=== PATIENT | female | born 2000 | race Hispanic/Latino ===

== ENCOUNTER 2020-04-13 14:42 | Emergency (ER) | payer OTHER ==
--- OUTSIDE RECORDS SUMMARY | 2020-04-13 14:45 | XMS REPORT | Continuity of Care Document ---
:2000 Author Organization [facility] t Address [address] [place] [address] Care Team Providers Name Role Phone Marcell Reyes MD Attending Clinician Problems This patient has no known problems. Allergies, Adverse Reactions, Alerts This patient has no known allergies or adverse reactions. Medications This patient has no known medications. Procedures This patient has no known procedures. Encounters Start End Encounter Admission Attending Care Care Encounter Source Date/Time Date/Time Type Type Clinicians Facility Department ID 2020-04-02 2020-04-02 Emergency Eric NHSAHARA [id number] 15:00:00 16:56:00 Sacha Corado [id number] [place] [id number] [place] [id number] Results This patient has no known results.
--- NOTE | 2020-04-13 18:00 | ER ---
Nurse's Notes [facility] Name: Dorothy Trujillo Age: 20 yrs Sex: Female : 2000 Arrival Date: 04/13/2020 Time: 14:43 Bed 23 [facility] MD: Diagnosis: Vomiting;Alcohol abuse Presentation: 04/13 14:47 Chief complaint: Patient states: vomiting that started this morning after "drinking too sv much last night". Coronavirus screen: Client denies travel out of the [place] in the last 14 days. At this time, the client does not indicate any symptoms associated with coronavirus-19. Ebola Screen: No symptoms or risks identified at this time. Risk Assessment: Do you want to hurt yourself or someone else? Patient reports no desire to harm self or others. Onset of symptoms was April 13, 2020. 14:47 Method Of Arrival: Ambulatory sv 14:47 Acuity: AMELIA 4 sv 14:49 Initial Sepsis Screen: Does the patient meet any 2 criteria? No. Patient's initial sv sepsis screen is negative. Does the patient have a suspected source of infection? No. Patient's initial sepsis screen is negative. Triage Assessment: 14:51 General: Appears in no apparent distress. comfortable, Behavior is calm, cooperative, sv appropriate for age. Neuro: Level of Consciousness is awake, alert, obeys commands, Oriented to person, place, time, situation, Gait is steady. Respiratory: Respiratory effort is even, unlabored. GI: Reports vomiting. Historical: - Allergies: 14:48 No Known Allergies; sv - Home Meds: 17:28 Latuda oral [Active]; Trazodone Oral [Active]; Buspirone Oral [Active]; Hydroxyzine vg1 Oral [Active]; cetirizine oral oral [Active]; - PMHx: 14:48 None; sv - PSHx: 14:48 Tonsillectomy; sv - Immunization history:: Adult Immunizations up to date. - Social history:: Smoking status: Reported history of juuling and/or vaping. Screenin:26 Abuse screen: Denies threats or abuse. Nutritional screening: No deficits noted. vg1 Tuberculosis screening: No symptoms or risk factors identified. Fall Risk None identified. Assessment: 17:25 General: Appears in no apparent distress. comfortable, Behavior is calm, cooperative. vg1 Pain: Complains of pain in epigastric area Pain currently is 3 out of 10 on a pain scale. Pain began this morning. Neuro: Level of Consciousness is awake, alert, obeys commands, Oriented to person, place, time, situation. Cardiovascular: Patient's skin is warm and dry. Respiratory: Airway is patent Respiratory effort is even, unlabored. GI: Abdomen is flat, Bowel sounds present X 4 quads. Abd is soft and non tender X 4 quads. Reports nausea, vomiting. : No signs and/or symptoms were reported regarding the genitourinary system. EENT: No signs and/or symptoms were reported regarding the EENT system. Derm: Skin is intact, is healthy with good turgor. Musculoskeletal: Circulation, motion, and sensation intact. Vital Signs: 14:49 BP 125 / 96; Pulse 70; Resp 16; Temp 98(TE); Pulse Ox 99% on R/A; Weight 52.16 kg; sv Height 5 ft. 2 in. (157.48 cm); 17:26 BP 108 / 82; Pulse 70; Resp 16; Pulse Ox 99% on R/A; vg1 14:49 Body Mass Index 21.03 (52.16 kg, 157.48 cm) sv ED Course: 14:43 Patient arrived in ED. ds1 14:47 Arm band placed on. sv 14:48 Triage completed. sv 17:12 Elizabeth Jones, CANDACE is Primary Nurse. vg1 17:15 Pepe Stevens NP is PHCP. pm1 17:15 Eliseo Chappell MD is Attending Physician. pm1 17:26 Patient has correct armband on for positive identification. Bed in low position. Call vg1 light in reach. Side rails up X 1. 18:03 No provider procedures requiring assistance completed. Patient did not have IV access vg1 during this emergency room visit. Administered Medications: No medications were administered Outcome: 18:03 AMA AMA form signed vg1 18:03 Condition: good 18:03 Patient left the ED. vg1 Signatures: Sarah Chavez RN RN Corrie Squires ds1 Pepe Stevens NP SPORTS RECRUITER pm1 Elizabeth Jones RN RN vg1 Corrections: (The following items were deleted from the chart) 14:50 14:49 Pulse 70bpm; Resp 16bpm; Pulse Ox 99% RA; Temp 98F Temporal; 52.16 kg; Height 5 sv ft. 2 in.; BMI: 21.0; sv
--- NOTE | 2020-04-13 18:00 | EDPHYS ---
Physician Documentation [facility] Name: Dorothy Trujillo Age: 20 yrs Sex: Female : 2000 Arrival Date: 04/13/2020 Time: 14:43 Bed 23 Private MD: ED Physician Eliseo Chappell HPI: 04/13 17:41 This 20 yrs old Female presents to ER via Ambulatory with complaints of pm1 Vomiting. 17:41 The patient presents to the emergency department with vomiting. pm1 17:41 Onset: The symptoms/episode began/occurred this morning. Possible causes: ETOH. The pm1 symptoms are aggravated by nothing. The symptoms are alleviated by nothing. Associated signs and symptoms: Pertinent positives: abdominal pain, Pertinent negatives: constipation, diarrhea, fever. Severity of symptoms: in the emergency department the symptoms are worse. The patient has not experienced similar symptoms in the past. The patient has not recently seen a physician. Historical: - Allergies: 14:48 No Known Allergies; sv - Home Meds: 17:28 Latuda oral [Active]; Trazodone Oral [Active]; Buspirone Oral [Active]; Hydroxyzine vg1 Oral [Active]; cetirizine oral oral [Active]; - PMHx: 14:48 None; sv - PSHx: 14:48 Tonsillectomy; sv - Immunization history:: Adult Immunizations up to date. - Social history:: Smoking status: Reported history of juuling and/or vaping. ROS: 17:41 Constitutional: Negative for fever, chills, and weight loss, Cardiovascular: Negative pm1 for chest pain, palpitations, and edema, Respiratory: Negative for shortness of breath, cough, wheezing, and pleuritic chest pain. 17:41 Back: Negative for injury and pain, : Negative for injury, bleeding, discharge, and swelling, MS/Extremity: Negative for injury and deformity, Skin: Negative for injury, rash, and discoloration, Neuro: Negative for headache, weakness, numbness, tingling, and seizure. 17:41 Abdomen/GI: Positive for abdominal pain, nausea and vomiting, Negative for diarrhea, constipation. Exam: 17:41 Constitutional: This is a well developed, well nourished patient who is awake, alert, pm1 and in no acute distress. Head/Face: Normocephalic, atraumatic. 17:41 Back: No spinal tenderness. No costovertebral tenderness. Full range of motion. Skin: Warm, dry with normal turgor. Normal color with no rashes, no lesions, and no evidence of cellulitis. MS/ Extremity: Pulses equal, no cyanosis. Neurovascular intact. Full, normal range of motion. 17:41 Cardiovascular: Exam negative for acute changes, Rate: normal, Rhythm: regular, Pulses: no pulse deficits are appreciated. 17:41 Respiratory: Exam negative for acute changes, respiratory distress, shortness of breath. 17:41 Abdomen/GI: Inspection: abdomen appears normal, Palpation: abdomen is soft and non-tender, in all quadrants. 17:41 Neuro: Exam negative for acute changes, Orientation: is normal, Mentation: is normal, Motor: is normal, moves all fours. Vital Signs: 14:49 BP 125 / 96; Pulse 70; Resp 16; Temp 98(TE); Pulse Ox 99% on R/A; Weight 52.16 kg; sv Height 5 ft. 2 in. (157.48 cm); 17:26 BP 108 / 82; Pulse 70; Resp 16; Pulse Ox 99% on R/A; vg1 14:49 Body Mass Index 21.03 (52.16 kg, 157.48 cm) sv MDM: 17:20 Patient medically screened. pm1 17:45 Data reviewed: vital signs. Data interpreted: Pulse oximetry: on room air is 99 %. pm1 Interpretation: normal. 17:57 Refusal of service: The patient/guardian displays adequate decision making capability pm1 and despite a detailed discussion of alternatives, benefits, risks, and consequences refuses: all lab tests. 04/13 17:30 Order name: Basic Metabolic Panel pm1 04/13 17:30 Order name: Hepatic Function pm1 04/13 17:30 Order name: Lipase pm1 04/13 17:30 Order name: IV Saline Lock pm04/13 17:30 Order name: Labs collected and sent pm1 04/13 17:31 Order name: Urine Dipstick-Ancillary (obtain specimen) pm1 04/13 17:31 Order name: Urine Test (obtain specimen) pm1 Administered Medications: No medications were administered Disposition: 04/14 06:21 Co-signature as Attending Physician, Eliseo Chappell MD I agree with the assessment and fransico plan of care. Disposition: 04/13/20 17:59 Patient has left against medical advice. Impression: Vomiting, Alcohol abuse. - Patients states they are going to Home. - Condition is Undetermined. - Discharge Instructions: Nausea and Vomiting, Adult, Alcohol Abuse and Nutrition. Follow up: Emergency Department; When: As needed; Reason: Worsening of condition. Follow up: Private Physician; When: Upon discharge from the Emergency Department; Reason: Recheck today's complaints, Continuance of care, Re-evaluation by your physician. - Problem is new. - Symptoms are unchanged. Signatures: Dispatcher [employer] EDSarah Arreguin RN RN Eliseo Swanson MD MD cha Marinas, Patrick, SPECIAL EDUCATION SUPERINTENDENT SPECIAL EDUCATION SUPERINTENDENT pm1 Elizabeth Jones RN RN vg1 Corrections: (The following items were deleted from the chart) 04/13 18:03 17:59 04/13/2020 17:59 Patients has left against medical advice. Impression: Vomiting; vg1 Alcohol abuse. Patient states they are going to Home. Condition is Undetermined. Follow up: Emergency Department; When: As needed; Reason: Worsening of condition. Follow up: Private Physician; When: Upon discharge from the Emergency Department; Reason: Recheck today's complaints, Continuance of care, Re-evaluation by your physician. Problem is new. Symptoms are unchanged. pm1
[2020-04-13] MEDS ORDERED: MAGNES/ALUMIN/SIMET 30ML UCUP ONE (18:12)
[2020-04-13] MEDS ORDERED: LIDOCAINE VISCOUS 2% SOLN 15 ML UDC ONE (18:12)
[2020-04-13] MEDS ORDERED: ONDANSETRON 4 MG/2 ML VIAL ONE (18:12)
[2020-04-13] MEDS ORDERED: NA CHLORIDE 0.9% 0 ML ONE (18:13)
[2020-04-13 19:13] VITALS: TEMP 98; O2SAT 99
[2020-04-13 19:14] VITALS: BP 108/82
== END 2020-04-13 18:03 | disposition left against medical advice (07) ==
LOC: ER 14:42
DX: F10.10 Alcohol abuse, uncomplicated (principal); Z87.891 Personal history of nicotine dependence
CPT/HCPCS: 99281; J2405; J7030

== ENCOUNTER 2020-06-06 13:43 | Emergency (ER) | payer OTHER ==
--- OUTSIDE RECORDS SUMMARY | 2020-06-06 13:45 | XMS REPORT | Continuity of Care Document ---
:[address] [facility] t Address [address] [place] [address] Care Team Providers Name Role Phone UNKNOWN Primary Care Physician Unavailable Marcell Reyes MD Attending Clinician IVA STEWART M.D. Attending Clinician Unavailable IVA STEWART M.D. Admitting Clinician Unavailable Problems This patient has no known problems. Allergies, Adverse Reactions, Alerts This patient has no known allergies or adverse reactions. Medications This patient has no known medications. Procedures This patient has no known procedures. Encounters Start End Encounter Admission Attending Care Care Encounter Source Date/Time Date/Time Type Type Clinicians Facility Department ID 2020-04-02 2020-04-02 Emergency JAROD Reyes [id number] 15:00:00 16:56:00 Sacha Faith [place] [id number] [place] [id number] [place] [id number] 2016-04-22 2016-04-22 Outpatient [facility] [id number] Medical 05:29:00 05:29:00 [facility] Results This patient has no known results.
[2020-06-06 16:48] LABS: Urine Blood Trace-intact (Negative); Urine Glucose Negative (Negative); Urine Protein Negative (Negative); Urine pH 6.5 (5.0-7.0)
[2020-06-06] MEDS ORDERED: ONDANSETRON 4 MG/2 ML VIAL ONE (16:48)
[2020-06-06] MEDS ORDERED: NA CHLORIDE 0.9% 1,000 ML ONE (16:48)
[2020-06-06] MEDS ORDERED: ACETAMINOPHEN 325 MG TABLET ONE (16:48)
[2020-06-06 16:52] LABS: Absolute Lymphocytes (CBC) 2.6 K/uL (0.7-4.9); Basophils % 0.4 % (0-1.3); Hematocrit 38.2 % (36.0-45.0); Lymphocytes % 36.4 % (15.3-44.8); MPV 9.1 fL (7.6-11.3); RBC Red Blood Cell Count 4.11 M/uL (3.86-4.86)
[2020-06-06 16:55] LABS: Urine Blood TRACE (Negative); Urine Glucose NEGATIVE (Negative); Urine Protein NEGATIVE (Negative); Urine pH 6.5 (5.0-7.0)
[2020-06-06 17:17] LABS: ALT/SGPT 82 U/L (12-78); AST/SGOT 43 U/L (15-37); Albumin 3.9 g/dL (3.4-5.0); Alkaline Phosphatase 73 U/L (45-117); BUN Blood Urea Nitrogen 12 mg/dL (7-18); Bicarbonate 28 mmol/L (21-32); Bilirubin Direct 0.1 mg/dL (0-0.2); Bilirubin Total 0.5 mg/dL (0.2-1.0); Glucose Level 84 mg/dL (74-106); Lipase 65 U/L (73-393); Potassium 3.7 mmol/L (3.5-5.1); Protein, Total 7.5 g/dL (6.4-8.2); Sodium Level 138 mmol/L (136-145)
--- NOTE | 2020-06-06 17:34 | RAD REPORT ---
EXAM DESCRIPTION: RAD - Wrist Right 3 View - 06/06/2020 4:54 pm CLINICAL HISTORY: PAIN Pain COMPARISON: <Comparisons> FINDINGS: No fracture or dislocation seen. No foreign body or other soft tissue abnormality. IMPRESSION: Negative examination.
--- NOTE | 2020-06-06 17:44 | ER ---
Nurse's Notes [facility] Name: Dorothy Trujillo Age: 20 yrs Sex: Female : 2000 Arrival Date: 06/06/2020 Time: 13:46 Bed 15 Private MD: Diagnosis: Vomiting;Other and unspecified sprain of wrist Presentation: 06/06 13:58 Chief complaint: Patient states: N/V that began this morning. Also wants to have R ss wrist checked out after injuring it last night. Coronavirus screen: Client denies travel out of the [place] in the last 14 days. Ebola Screen: Patient denies exposure to infectious person. Patient denies travel to an Ebola-affected area in the 21 days before illness onset. Initial Sepsis Screen: Does the patient meet any 2 criteria? No. Patient's initial sepsis screen is negative. Does the patient have a suspected source of infection? No. Patient's initial sepsis screen is negative. Risk Assessment: Do you want to hurt yourself or someone else? Patient reports no desire to harm self or others. Onset of symptoms was June 06, 2020. 13:58 Method Of Arrival: Ambulatory ss 13:58 Acuity: AMELIA 3 ss Triage Assessment: 15:30 General: Appears in no apparent distress. uncomfortable, Behavior is calm, cooperative, bp appropriate for age. Pain: Complains of pain in head. EENT: No deficits noted. Neuro: Level of Consciousness is awake, alert, obeys commands, Oriented to Appropriate for age. Cardiovascular: No deficits noted. Respiratory: No deficits noted. GI: Reports nausea, vomiting. : No signs and/or symptoms were reported regarding the genitourinary system. Derm: No deficits noted. Musculoskeletal: No deficits noted. 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 - Social history:: Smoking status: Patient reports the use of cigarette tobacco products, smokes one-half pack cigarettes per day. Screenin:30 Abuse screen: Denies threats or abuse. Denies injuries from another. Nutritional bp screening: No deficits noted. Tuberculosis screening: No symptoms or risk factors identified. Fall Risk None identified. Assessment: 15:30 General: SEE TRIAGE NOTE. bp 16:30 GI: Abdomen is non-distended. bp 17:30 Reassessment: Patient appears in no apparent distress at this time. Patient and/or bp family updated on plan of care and expected duration. Pain level reassessed. Patient is alert, oriented x 3, equal unlabored respirations, skin warm/dry/pink. ALL CURRENT ORDERS COMPLETED Patient states symptoms have improved. 17:52 Reassessment: PT D/C HOME AMBULATORY, DX WITH NAUSEA/VOMITING. bp Vital Signs: 14:02 BP 117 / 90; Pulse 95; Resp 15; Temp 97.0(TE); Pulse Ox 98% on R/A; Weight 63.5 kg; ss Height 5 ft. 2 in. (157.48 cm); Pain 0/10; 15:30 BP 137 / 76; Pulse 88; Resp 17; Pulse Ox 97% ; bp 16:30 BP 111 / 85; Pulse 62; Resp 17; Pulse Ox 99% ; bp 17:30 BP 116 / 83; Pulse 59; Resp 17; Pulse Ox 97% ; bp 14:02 Body Mass Index 25.61 (63.50 kg, 157.48 cm) ED Course: 13:46 Patient arrived in ED. mr 13:59 Triage completed. ss 14:04 Arm band placed on right wrist. ss 15:29 Rosalino Olivarez, CANDACE is Primary Nurse. bp 15:40 Thomas Snyder PA is PHCP. jmm 15:40 Eliseo Chappell MD is Attending Physician. jmm 16:40 Inserted saline lock: 20 gauge in right antecubital area, using aseptic technique. bp Blood collected. 16:55 Wrist Right 3 View XRAY In Process Unspecified. EDMS 16:59 Patient has correct armband on for positive identification. Bed in low position. Call bp light in reach. Side rails up X2. 17:52 No provider procedures requiring assistance completed. IV discontinued, intact, bp bleeding controlled, No redness/swelling at site. Pressure dressing applied. Administered Medications: 16:15 Drug: Tylenol 650 mg Route: PO; bp 17:56 Follow up: Response: No adverse reaction bp 16:20 Drug: NS 0.9% 1000 ml Route: IV; Rate: 1 bolus; Site: right antecubital; bp 17:56 Follow up: IV Status: Completed infusion; IV Intake: 1000ml bp 16:20 Drug: Zofran (Ondansetron) 4 mg Route: IVP; Site: right antecubital; bp 17:56 Follow up: Response: No adverse reaction bp Intake: 17:56 IV: 1000ml; Total: 1000ml. bp Outcome: 17:43 Discharge ordered by MD. [facility] 17:53 Discharged to home ambulatory, with family. bp 17:53 Condition: stable 17:53 Discharge instructions given to patient, Instructed on discharge instructions, follow up and referral plans. medication usage, Demonstrated understanding of instructions, follow-up care, medications, Prescriptions given X 1. 17:56 Patient left the ED. bp Signatures: Dispatcher [employer] EDMS Thomas Snyder PA PA jmm Rivera, Mary mr Dorothy Jones, RN RN Rosalino Badillo RN RN bp Corrections: (The following items were deleted from the chart) 14:02 13:58 Chief complaint: Patient states: "I went out drinking last night and this morning ss I can't hold anything down." ss 14:02 13:58 BP 123 / 75; Pulse 86bpm; Resp 14bpm; Pulse Ox 99% RA; Temp 98.5F Temporal; 63.5 ss kg; Height 5 ft. 9 in.; BMI: 20.6; Pain 6/10; ss
--- NOTE | 2020-06-06 17:44 | EDPHYS ---
Physician Documentation [facility] Name: Dorothy Trujillo Age: 20 yrs Sex: Female : 2000 Arrival Date: 06/06/2020 Time: 13:46 Bed 15 Private MD: ED Physician Eliseo Chappell HPI: 06/06 16:00 This 20 yrs old Female presents to ER via Ambulatory with complaints of jmm Vomiting. 16:00 The patient presents to the emergency department with nausea, vomiting. Onset: The jmm symptoms/episode began/occurred gradually, today. Possible causes: etoh. The symptoms are aggravated by nothing. The symptoms are alleviated by nothing. Associated signs and symptoms: Pertinent negatives: abdominal pain. This is a 20 year old female with a history of bipolar, PTSD that presents to the ED with complaints of vomiting beginning this morning. Patient attributes this to heavy drinking last night. Patient states she also fell last night injuring her right wrist. Denies other known injury. . 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 - Social history:: Smoking status: Patient reports the use of cigarette tobacco products, smokes one-half pack cigarettes per day. ROS: 16:00 Constitutional: Negative for fever, chills, and weight loss, Cardiovascular: Negative jmm for chest pain, palpitations, and edema, Respiratory: Negative for shortness of breath, cough, wheezing, and pleuritic chest pain. 16:00 Abdomen/GI: Positive for nausea and vomiting. 16:00 MS/extremity: Positive for pain. 16:00 All other systems are negative. Exam: 16:00 Constitutional: This is a well developed, well nourished patient who is awake, alert, jmm and in no acute distress. Head/Face: atraumatic. Eyes: EOMI, no conjunctival erythema appreciated ENT: Moist Mucus Membranes Neck: Trachea midline, Supple Chest/axilla: Normal chest wall appearance and motion. Cardiovascular: Regular rate and rhythm. No edema appreciated Respiratory: Normal respirations, no respiratory distress appreciated Abdomen/GI: Non distended, soft Back: Normal ROM 16:00 Abdomen/GI: Inspection: abdomen appears normal, Bowel sounds: normal, Palpation: abdomen is soft and non-tender, in all quadrants, soft, in all quadrants. 16:00 Musculoskeletal/extremity: right wrist is ttp, full radial pulse, compartments are soft, < 2 sec dist cap refill, NVI. 16:00 Skin: Appearance: Color: normal in color. 16:00 Neuro: Orientation: is normal, Mentation: is normal, Memory: is normal. 16:00 Psych: Behavior/mood is pleasant, cooperative. Vital Signs: 14:02 BP 117 / 90; Pulse 95; Resp 15; Temp 97.0(TE); Pulse Ox 98% on R/A; Weight 63.5 kg; ss Height 5 ft. 2 in. (157.48 cm); Pain 0/10; 15:30 BP 137 / 76; Pulse 88; Resp 17; Pulse Ox 97% ; bp 16:30 BP 111 / 85; Pulse 62; Resp 17; Pulse Ox 99% ; bp 17:30 BP 116 / 83; Pulse 59; Resp 17; Pulse Ox 97% ; bp 14:02 Body Mass Index 25.61 (63.50 kg, 157.48 cm) ss MDM: 16:00 Patient medically screened. fransico 17:42 Data reviewed: vital signs, nurses notes. Counseling: I had a detailed discussion with peter the patient and/or guardian regarding: the historical points, exam findings, and any diagnostic results supporting the discharge/admit diagnosis, lab results, radiology results, the need for outpatient follow up, to return to the emergency department if symptoms worsen or persist or if there are any questions or concerns that arise at home. ED course: No abdominal pain, I do not suspect an acute intrabdominal process. . 06/06 16:06 Order name: Basic Metabolic Panel; Complete Time: 17:18 [facility] 06/06 16:06 Order name: CBC with Diff; Complete Time: 17:04 [facility] 06/06 16:06 Order name: Hepatic Function; Complete Time: 17:18 [facility] 06/06 16:06 Order name: Lipase; Complete Time: 17:18 [facility] 06/06 16:47 Order name: Urine --Ancillary (enter results); Complete Time: 17:04 06/06 16:48 Order name: Urine Dipstick-Ancillary; Complete Time: 16:51 [facility] 06/06 16:06 Order name: IV Saline Lock; Complete Time: 16:39 [facility] 06/06 16:06 Order name: Labs collected and sent; Complete Time: 16:39 [facility] 06/06 16:07 Order name: Wrist Right 3 View XRAY; Complete Time: 17:36 [facility] 06/06 16:49 Order name: Urine Dipstick--Ancillary (enter results) 06/06 16:50 Order name: Urine Dipstick-Ancillary; Complete Time: 17:04 [facility] 06/06 16:07 Order name: Urine Dipstick-Ancillary (obtain specimen); Complete Time: 16:48 [facility] 06/06 16:07 Order name: Urine Test (obtain specimen); Complete Time: 16:48 jm Administered Medications: 16:15 Drug: Tylenol 650 mg Route: PO; bp 17:56 Follow up: Response: No adverse reaction bp 16:20 Drug: NS 0.9% 1000 ml Route: IV; Rate: 1 bolus; Site: right antecubital; bp 17:56 Follow up: IV Status: Completed infusion; IV Intake: 1000ml bp 16:20 Drug: Zofran (Ondansetron) 4 mg Route: IVP; Site: right antecubital; bp 17:56 Follow up: Response: No adverse reaction bp Disposition: 06/06/20 17:43 Discharged to Home. Impression: Vomiting, Other and unspecified sprain of wrist. - Condition is Stable. - Discharge Instructions: Nausea and Vomiting, Adult, Wrist Sprain. - Prescriptions for Zofran ODT 4 mg Oral tablet,disintegrating - place 1 tablet by TRANSLINGUAL route every 4-6 hours; 20 tablet. - Medication Reconciliation Form, Thank You Letter, Antibiotic Education, Prescription Opioid Use, Work release form form. - Follow up: Private Physician; When: 2 - 3 days; Reason: Recheck today's complaints, Continuance of care, Re-evaluation by your physician. Addendum: 06/08/2020 08:10 Co-signature as Attending Physician, Eliseo Chappell MD I agree with the assessment and c costello plan of care. Signatures: Dispatcher [employer] EDEliseo Franco MD MD cha Mickail, Joel, PA PA Dorothy Medina, CANDACE RN ss Rosalino Olivarez RN RN bp Corrections: (The following items were deleted from the chart) 06/06 17:56 17:43 06/06/2020 17:43 Discharged to Home. Impression: Vomiting; Other and unspecified bp sprain of wrist. Condition is Stable. Forms are Work release form, Medication Reconciliation Form, Thank You Letter, Antibiotic Education, Prescription Opioid Use. Follow up: Private Physician; When: 2 - 3 days; Reason: Recheck today's complaints, Continuance of care, Re-evaluation by your physician. peter
[2020-06-06 18:08] VITALS: TEMP 97
[2020-06-06 18:12] VITALS: BP 116/83; O2SAT 97
== END 2020-06-06 17:56 | disposition home or self-care (01) ==
LOC: ER 13:43
DX: R11.2 Nausea with vomiting, unspecified (principal); S63.501A Unspecified sprain of right wrist, initial encounter; F41.9 Anxiety disorder, unspecified; F31.9 Bipolar disorder, unspecified; F43.10 Post-traumatic stress disorder, unspecified; W19.XXXA Unspecified fall, initial encounter; F17.210 Nicotine dependence, cigarettes, uncomplicated
CPT/HCPCS: 96361; 85025; 80048; 36415; 81025; 80076; 81003 ×2; 83690; 73110; 96374; 99284; J7030; J2405